=== PATIENT | male | born 1960 | race Hispanic/Latino ===

== ENCOUNTER 2023-08-13 13:30 | Outpatient (CLI) | payer BC ==
[2023-08-13 14:14] LABS: #Basophils 0.1 10x3/uL (0.0-0.2); #Eosinphils 0.2 10x3/uL (0.0-0.5); #Monocytes 0.6 10x3/uL (0.0-1.1); #Neutrophils 6.9 10x3/uL (1.5-8.4); %Basophils 0.5 % (0.0-2.0); %Eosinophils 2.2 % (0.0-6.0); %Lymphocytes 14.9 % (18.0-47.0); %Monocytes 6.7 % (0.0-10.0); %Neutrophils 75.2 % (40.0-75.0); Hemoglobin 16.5 g/dL (13.5-17.5); Mean Corpuscular HGB CONC 34.4 g/dL (32.0-36.0); Mean Platelet Volume 9.2 fl (7.4-10.4); Platelet Count 266 10x3/uL (150-450); RBC Distribution Width 12.2 % (11.5-14.5); Red Blood Cell (RBC) Count 5.16 10x6/uL (4.32-5.72); White Blood Cell (WBC) Count 9.2 10x3/uL (3.5-10.5)
[2023-08-13 14:34] LABS: ALT (SGPT) 27 U/L (8-55); AST (SGOT) 26 U/L (5-34); Albumin 4.3 g/dL (3.4-4.8); Alkaline Phosphatase 55 U/L (40-110); Anion Gap 16 mmol/L (10-20); BUN (Urea Nitrogen) 13 mg/dL (8.4-25.7); Bilirubin, Total 1.2 mg/dL (0.2-1.2); Calc. Creatinine Clearance 0 mL/min (70-130); Carbon Dioxide 27 mmol/L (23-31); Chloride 99 mmol/L (98-107); Estimated GFR 82; Globulin 2.4 g/dL (2.4-3.5); Glucose 98 mg/dL (80-115); Potassium 3.9 mmol/L (3.5-5.1); Protein, Total 6.7 g/dL (5.8-8.1); Sodium 138 mmol/L (136-145)
== END 2023-08-13 13:31 | disposition home or self-care (01) ==
LOC: LABBT 13:30
PROVIDERS: ATTEND Surgery
DX: Z01.818 Encounter for other preprocedural examination (principal); K40.90 Unilateral inguinal hernia, without obstruction or gangrene, not specified as recurrent
CPT/HCPCS: 80053; 85025; 93005; 93010

== ENCOUNTER 2023-08-20 09:45 | Day surgery (SDC) | payer BC ==
[2023-08-13 14:58] VITALS: BMI 29.8
[2023-08-20] MEDS ORDERED: EPINEPHrine 1 MG/ML VIAL ONE (13:48)
[2023-08-20] MEDS ORDERED: Bupivacaine 0.25% HCL 30 ML VIAL ONE (13:48)
[2023-08-20] MEDS ORDERED: PROPOFOL 20 ML ONE (13:56)
[2023-08-20] MEDS ORDERED: fentaNYL PF 100 MCG/2 ML SYRINGE ONE (13:56)
[2023-08-20] MEDS ORDERED: Midazolam HCl 2 mg/2 ml Vial ONE (13:59)
[2023-08-20] MEDS ORDERED: Lidocaine 1% PF 5 ML VIAL ONE (13:59)
[2023-08-20] MEDS ORDERED: CEFAZOLIN 2 GM VIAL ONE (14:00)
[2023-08-20] MEDS ORDERED: Sodium Chloride 0.9% 100 ML ONE (14:00)
[2023-08-20] MEDS ORDERED: Dexamethasone 4 mg/ml Vial ONE (14:27)
[2023-08-20] MEDS ORDERED: Ketorolac Tromethamine 30 MG/ML VIAL ONE (14:27)
[2023-08-20] MEDS ORDERED: Ondansetron PF 4 MG/2 ML Vial ONE (14:27)
== END 2023-08-20 16:37 | disposition home or self-care (01) ==
LOC: SDC 09:45
PROVIDERS: ATTEND Surgery
PROC: 0YQ60ZZ Repair Left Inguinal Region, Open Approach (ICD-10-PCS; principal; 2023-08-20)
DX: K40.90 Unilateral inguinal hernia, without obstruction or gangrene, not specified as recurrent (principal); I10 Essential (primary) hypertension; E78.5 Hyperlipidemia, unspecified; F10.90 Alcohol use, unspecified, uncomplicated; Z90.89 Acquired absence of other organs; Z79.82 Long term (current) use of aspirin; Z79.899 Other long term (current) drug therapy
CPT/HCPCS: C1781; J0171; J1100; J1885; J2250; J2405; J2704; J3490; S0020

== ENCOUNTER 2025-06-23 08:36 | Outpatient (CLI) | payer MEDICARE | END 2025-06-23 08:37 | disposition home or self-care (01) | LOC: RAD 08:36 | PROVIDERS: ATTEND Internal Medicine | DX: R06.00 Dyspnea, unspecified (principal); I51.7 Cardiomegaly | CPT/HCPCS: 71046 ==